=== PATIENT | male | born 1955 | race Caucasian/White ===

== ENCOUNTER 2018-11-25 12:24 | Emergency (ER) | payer OTHER ==
--- NOTE | 2018-11-25 13:13 | EDPHY ---
H & P Time Seen by Provider: 11/25/18 13:12 HPI/ROS: Chief complaint. Head injury HPI. 63-year-old male presents emergency department with complaint of fall this morning at about 7:00 a.m.. He was playing racquet sports slipped and fell on to his low back and then struck his head on the concrete wall. Was dazed but did not lose consciousness. Has bump to the right side of his head. Pain in low back. Took tramadol with inadequate relief. He has had fusion in 2008 as well as 2012 in the area of L3-S1. No leg weakness. He continues to have slight headache and nausea. He is not on blood thinners. No neck pain, chest pain, abdominal pain or injury to arms or legs. ROS 10 systems were reviewed and negative with the exception of the elements mentioned in the history of present illness Past Medical/Surgical History: Spinal surgery, diabetes, hypertension, dyslipidemia Social History: , nonsmoker, no alcohol Smoking Status: Never smoked Physical Exam: General Appearance: Alert well-developed male mild distress vital signs are stable Eyes: Pupils equal and round no pallor or injection. ENT, no hemotympanum or Contreras sign. No oral pharyngeal or dental trauma. Hematoma right parietal area Respiratory: There are no retractions, lungs are clear to auscultation. Cardiovascular: Regular rate and rhythm. Gastrointestinal: Abdomen is soft and nontender, no masses, bowel sounds normal. Neurological: Awake and alert, sensory and motor exams grossly normal. Skin: Warm and dry, no rashes. Musculoskeletal: Neck is supple nontender. Tenderness to the upper lumbar spine. No obvious swelling Extremities symmetrical, full range of motion. Psychiatric: Patient is oriented X 3, there is no agitation. Constitutional: Initial Vital Signs Temperature (C) 36.6 C 11/25/18 12:43 Heart Rate 73 11/25/18 12:43 Respiratory Rate 18 11/25/18 12:43 Blood Pressure 100/65 11/25/18 12:43 O2 Sat (%) 98 11/25/18 12:43 O2 Delivery Mode Room Air Allergies/Adverse Reactions: No Known Allergies Allergy (Unverified 11/25/18 12:47) Home Medications: Medication Instructions Recorded Aspirin [Aspirin 81mg (OTC)] 81 mg PO HS 03/05/12 Glipizide [Glipizide 5 mg (RX)] 10 mg PO DAILY 03/05/12 Lisinopril [Zestril 20 mg (RX)] 20 mg PO DAILY 03/05/12 Ascorbic Acid [Vitamin C 500 mg 500 mg PO DAILY 04/30/13 (OTC)] Calcium Carb W/Vit D [Calcium Carb 1 each PO DAILY 04/30/13 W/Vit D 500/200 (OTC)] Simvastatin [Zocor 10 mg (RX)] 10 mg PO HS 04/30/13 metFORMIN HCL [Glucophage 500 mg 1,500 mg PO HS 04/30/13 (RX)] Hydrocodone/APAP 5/325 [[place] 1 each PO Q4-6PRN PRN #14 tab 11/25/18 5/325 (*)] traZODone 11/25/18 Medical Decision Making - Diagnostics Imaging Results: Imaging Impressions Head CT 11/25/18 13:23 Impression: Head CT within normal limits. Results called to Dr. Blaise Hill at 2:15 PM General information for patients regarding this examination can be found at [email or web address]. If you have questions or comments about this report, please contact me at [phone] (hospital) or [phone] (cell). Lumbar Spine CT 11/25/18 13:23 Impression: 1. Acute mild L1 compression fracture. 2. Likely incidental renal cyst and possible incidental new gallstone. Results discussed with Dr. Blaise Hill at 2:[address] head interpreted by me and discussed with Dr. Kirby is negative CT lumbar spine reviewed by me and discussed with Kofi shows an acute mild L1 compression fracture of L1. New since 2012 Procedures: Hydrocodone for pain ED Course/Re-evaluation: Re-evaluation 2:30 p.m.. Patient and I and his discussed imaging study results, we discussed treatment plan including criteria for return importance of follow-up and further evaluation. They expressed understanding and agreement. Weak all Contact Officer for a [place] brace for his acute lumbar fracture Pain is controlled with the hydrocodone. He remains neurologically intact Differential Diagnosis: I considered skull fracture, intracranial bleeding, low back strain. Patient has an acute L1 compression fracture that appears stable - Data Points Medications Given: Discontinued Medications Hydrocodone Bitart/Acetaminophen ([place] 5/325) 1 tab PO EDNOW ONE Stop: 11/25/18 13:24 Last Admin: 11/25/18 13:28 Dose: 1 tab Ondansetron HCl (Zofran Odt) 4 mg PO EDNOW ONE Stop: 11/25/18 13:24 Last Admin: 11/25/18 13:29 Dose: 4 mg Ondansetron HCl (Zofran Odt) 4 mg PO EDNOW ONE Stop: 11/25/18 13:24 Last Admin: 11/25/18 14:27 Dose: Not Given Departure - Departure Disposition: Home, Routine, Self-Care Clinical Impression: Lumbar compression fracture Qualifiers: Encounter type: initial encounter Lumbar vertebra fracture level: L1 Fracture type: closed Qualified Code(s): S32.010A - Wedge compression fracture of first lumbar vertebra, initial encounter for closed fracture Condition: Good Instructions: Thoracolumbar Fracture (ED) Additional Instructions: Ice to sore area Wear your brace when up and ambulatory. Return for worsening back pain, leg weakness, bowel or bladder symptoms Follow-up with Dr. James for further evaluation Referrals: Minoo Alanis MD [Primary Care Provider] - As per Instructions Aramis James MD [Medical Doctor] - 5-7 days, call for appt. Prescriptions: Hydrocodone/APAP 5/325 [[place]ap 5/325 (*)] 1 each PO Q4-6PRN PRN #14 tab PRN Reason: Pain, Moderate
[2018-11-25] MEDS ORDERED: HYDROCODONE/APAP 5/325 TAB PO ONE ×2 (13:23→18:08)
[2018-11-25] MEDS ORDERED: ONDANSETRON DISINTEGRATING 4 MG TAB PO ONE ×2 (13:23)
[2018-11-25 17:05] VITALS: BP 95/64
== END 2018-11-25 18:02 | disposition home or self-care (01) ==
LOC: CED 12:24
DX: S32.010A Wedge compression fracture of first lumbar vertebra, initial encounter for closed fracture (principal); E11.9 Type 2 diabetes mellitus without complications; I10 Essential (primary) hypertension; W01.198A Fall on same level from slipping, tripping and stumbling with subsequent striking against other object, initial encounter; Y93.73 Activity, racquet and hand sports; Y92.318 Other athletic court as the place of occurrence of the external cause; Z79.4 Long term (current) use of insulin
CPT/HCPCS: 70450-PO; 72131-PO; 99284-ER